=== PATIENT | female | born 1950 | race Caucasian/White ===

== ENCOUNTER 2020-02-29 07:29 | Day surgery (SDC) | payer MEDICARE, OTHER ==
[~2020-02-29 07:29] MED LIST: Benzocaine 20% Topical Spray UD MUCMEM ONE; Midazolam 1 MG/ML 2 ML SDV ONE
[2020-02-29] MEDS ORDERED: Midazolam 1 MG/ML 2 ML SDV IV ONE ×7 (07:30→09:02)
[2020-02-29] MEDS ORDERED: Dextrose 5%-0.45% NaCl 1,000 ML IV SCH (07:45)
[2020-02-29] MEDS ORDERED: Benzocaine 20% Topical Spray UD MUCMEM ONE (08:57)
[2020-02-29] MEDS ORDERED: Midazolam 1 MG/ML 2 ML SDV ONE (09:20)
[2020-02-29 10:46] VITALS: BP 129/74; PULSE 71
--- NOTE | 2020-02-29 13:03 | OR ---
DATE: 02/29/2020 PREOPERATIVE DIAGNOSIS: Gastroesophageal reflux disease. POSTOPERATIVE DIAGNOSIS: Gastroesophageal reflux disease. PROCEDURE: Esophagogastroduodenoscopy with biopsy of pre-pyloric antrum for H pylori. ANESTHESIA: Conscious sedation. SPECIMEN: Biopsy of the antrum. OPERATIVE FINDINGS: A small hiatal hernia. No evidence of distal esophagitis. Esophagus is otherwise normal, as is the stomach. RECOMMENDATION: I am not sure the patient has much in the way of acid production. She seems to be really fixated on some of her symptoms even including burning up into her hypopharynx and lips. PROCEDURE IN DETAIL: After adequate preparation, a gastroscope was inserted into the esophagus and a scope was advanced down to the EG junction. She has a small hiatal hernia, but no evidence of distal esophagitis or strictures. The scope was advanced into the stomach. Both forward and retroflexed views were done and are normal. The scope was advanced through the pylorus and the first and second part of the duodenum were also normal. On withdrawal of the scope, there was a biopsy taken in the prepyloric antrum area. Air was suctioned from the stomach, and the scope was slowly withdrawn out of the esophagus, and examination of the hypopharynx did not show any evidence of abnormalities either. The scope was then removed. [facility] /[id number]
== END 2020-02-29 10:53 | disposition home or self-care (01) ==
LOC: DL.ENDO 07:29
PROVIDERS: ATTEND Surgery
DX: K21.9 Gastro-esophageal reflux disease without esophagitis (principal); K44.9 Diaphragmatic hernia without obstruction or gangrene; I10 Essential (primary) hypertension; E03.9 Hypothyroidism, unspecified; Z01.812 Encounter for preprocedural laboratory examination; Z20.828 Contact with and (suspected) exposure to other viral communicable diseases; Z79.899 Other long term (current) drug therapy; Z90.49 Acquired absence of other specified parts of digestive tract; Z98.890 Other specified postprocedural states; Z79.890 Hormone replacement therapy
CPT/HCPCS: 43239; 87077; A9270-GY; J2250; J7042; U0002